=== PATIENT | male | born 1955 | race Two or more races ===

== ENCOUNTER 2016-12-28 00:54 | Emergency (ER) | payer OTHER ==
[~2016-12-28] VITALS: Ht 167.6 cm; Wt 65.8 kg
[~2016-12-28 00:54] MED LIST: NKM
[2016-12-28 04:55] VITALS: BP 128/80
--- NOTE | 2016-12-28 05:12 | Emergency Room Report ---
History of Present Illness General Chief Complaint: Back Pain-No Injury Source: Patient Present Illness HPI 61 YOM BIB [employer] because "he was knocking on people's doors." Patient actually has no complaints, contrary to ward attendant note he denies low back pain or any other complaint. Denies past medical history. Denies ETOH or drug use. States he lives with his sister. He is actually not sure why he is here. He did not want to be taken to the hospital. Allergies: Coded Allergies: No Known Allergies (Unverified , 12/28/16) Patient History Past Medical History: none Past Surgical History: none Pertinent Family History: none Social History: Denies: alcohol use, drug use, smoking Immunizations: UTD Reviewed Nursing Documentation: PMH: Agreed, PSxH: Agreed Nursing Documentation-PMH Past Medical History: No Stated History Review of Systems All Other Systems: negative except mentioned in HPI Physical Exam Vital Signs Date Time Temp Pulse Resp B/P Pulse Ox O2 Delivery O2 Flow Rate FiO2 12/28/16 00:42 97.3 110 16 128/80 98 Room Air Sp02 EP Interpretation: reviewed, normal General Appearance: normal inspection, well appearing, no apparent distress, alert, GCS 15, non-toxic Head: normocephalic, atraumatic Eyes: bilateral eye EOMI, bilateral eye PERRL ENT: normal ENT inspection, hearing grossly normal, normal voice Neck: normal inspection, full range of motion, supple, no bony tend Respiratory: normal inspection, lungs clear, normal breath sounds, no rhonchi, no respiratory distress, no retraction, no accessory muscle use, no wheezing Cardiovascular #1: regular rate, rhythm, no edema Gastrointestinal: normal inspection, normal bowel sounds, non tender, soft, no guarding, no hernia Genitourinary: no CVA tenderness Musculoskeletal: normal inspection, back normal, normal range of motion, Lior' s Sign negative Neurologic: normal inspection, alert, oriented x3, responsive, dispensing optician III-XII nml as tested, motor strength/tone normal, speech normal Psychiatric: normal inspection, judgement/insight normal, mood/affect normal Skin: normal inspection, normal color, no rash Medical Decision Making Diagnostic Impression: Primary Impression: General medical exam ER Course 61 YOM brought by [employer]. VS notable for tachycardia on arrival, improved after period of observation Patient rested comfortably in chair Was observed for period of time in the ED No complaints Denies SI, HI, AVH on serial exam Was DCed in morning Last Vital Signs Date Time Temp Pulse Resp B/P Pulse Ox O2 Delivery O2 Flow Rate FiO2 12/28/16 04:55 97.3 90 16 128/80 98 Room Air Status: improved Disposition: HOME, SELF-CARE Condition: Improved Patient Instructions: Medical Screening Exam AC BANDA M.D. Dec 28, 2016 05:12
== END 2016-12-28 04:57 | disposition home or self-care (01) ==
LOC: EDBD 00:54 → EMR 01:08
DX: Z04.8 Encounter for examination and observation for other specified reasons (principal); R00.0 Tachycardia, unspecified
CPT/HCPCS: 99283